=== PATIENT | female | born 1960 | race Caucasian/White ===

== ENCOUNTER 2017-09-18 19:32 | Emergency (ER) | payer BC ==
--- NOTE | 2017-09-18 21:00 | PDOC ---
History of Present Illness - General History Source: Patient, Family (daughter ) Exam Limitations: No Limitations - History of Present Illness Initial Comments: 09/18/17 21:11 The patient is a 57 year old female with no significant past medical history who presents to the ED s/p alcohol intoxication since earlier today. Patient states she did not eat anything since Saturday and consumed large amounts of vodka earlier today. Daughter states the patient was not acting at her mental baseline and was . Patient states she is drinking because she feels depressed. Denies fever or chills. Denies loss of consciousness. Denies any other symptoms. Social hx: The patient is a social drinker. <Mariel Mireles - Last Filed: 09/18/17 21:11> <Nadine Beltran - Last Filed: 09/18/17 21:46> - General Stated Complaint: Alcohol intoxication Past History <Mariel Mireles - Last Filed: 09/18/17 21:11> - Past Medical History Anemia: No Asthma: No Cancer: No Cardiac Disorders: No CVA: No COPD: No CHF: No Dementia: No Diabetes: No GI Disorders: No Disorders: No HTN: Yes Hypercholesterolemia: Yes Liver Disease: No Seizures: No Thyroid Disease: No - Surgical History Abdominal Surgery: No Appendectomy: No Cardiac Surgery: No Cholecystectomy: No Lung Surgery: No Neurologic Surgery: No Orthopedic Surgery: No - Suicide/Smoking/Psychosocial Hx Smoking History: Current every day smoker ("hookah") Hx Alcohol Use: Yes Drug/Substance Use Hx: Yes Substance Use Type: Alcohol Hx Substance Use Treatment: No <Nadine Beltran - Last Filed: 09/18/17 21:46> - Past Medical History Allergies/Adverse Reactions: Allergies Allergy/AdvReac Type Severity Reaction Status Date / Time No Allergy Information Allergy Verified 04/16/16 11:01 Available Home Medications: Ambulatory Orders Thiamine HCl [Vitamin B1 -] 100 mg PO DAILY tablet 04/20/16 Review of Systems - Review of Systems Able to Perform ROS?: Yes Comments:: 09/18/17 21:11 GENERAL/CONSTITUTIONAL: + alcohol intoxication. No fever or chills. No weakness. HEAD, EYES, EARS, NOSE AND THROAT: No change in vision. No ear pain or discharge. No sore throat. CARDIOVASCULAR: No chest pain or shortness of breath. RESPIRATORY: No cough, wheezing, or hemoptysis. GASTROINTESTINAL: No nausea, vomiting, diarrhea or constipation. GENITOURINARY: No dysuria, frequency, or change in urination. MUSCULOSKELETAL: No joint or muscle swelling or pain. No neck or back pain. SKIN: No rash NEUROLOGIC: + altered mental status. No headache, vertigo, loss of consciousness , or change in strength. ENDOCRINE: No increased thirst. No abnormal weight change. HEMATOLOGIC/LYMPHATIC: No anemia, easy bleeding, or history of blood clots. ALLERGIC/IMMUNOLOGIC: No hives or skin allergy. All Other Systems: Reviewed and Negative <Mariel Mireles - Last Filed: 09/18/17 21:11> *Physical Exam - Physical Exam Comments: 09/18/17 21:11 GENERAL: Awake, alert, in no acute distress HEAD: No signs of trauma EYES: + eyes injected. PERRLA, EOMI, conjunctiva clear ENT: Auricles normal inspection, hearing grossly normal, nares patent, oropharynx clear without exudates. Moist mucosa NECK: Normal ROM, supple, no lymphadenopathy, JVD, or masses LUNGS: Breath sounds equal, clear to auscultation bilaterally. No wheezes, and no crackles HEART: Regular rate and rhythm, normal S1 and S2, no murmurs, rubs or gallops ABDOMEN: Soft, nontender, normoactive bowel sounds. No guarding, no rebound. No masses EXTREMITIES: Normal range of motion, no edema. No clubbing or cyanosis. No cords, erythema, or tenderness NEUROLOGICAL: + slurred speech, A&O x 3, moving all extremities. SKIN: Warm, Dry, normal turgor, no rashes or lesions noted. <Mariel Mireles - Last Filed: 09/18/17 21:11> Medical Decision Making - Medical Decision Making 09/18/17 20:58 57-year-old female here today brought with her daughter for concerns for altered mental status per the daughter presumes the patient had been drinking alcohol however the patient has been denying it denies any recent trauma falls or other injuries. States the patient does not drink daily because she was acting so altered they brought her here for evaluation On examination patient is awake somewhat irritable lungs are clear heart is regular without murmurs rubs or gallops abdomen is soft and nontender extremities are warm well atraumatic. Neurologically she is alert and oriented moving all extremities . Differential includes alcohol intoxication other drug use the plan will check labs EtOH level and tox screen and reassess her sobriety 09/18/17 21:42 Patient admits to drinking vodka today is here with her daughter. Discussion with the daughter has no concerns for other ingestions. States patient does get like this periodically. No history of prior suicide attempts did have an argument with another sibling which prompted her to drink today daughter states she is comfortable bringing her home and would like to decline lab work and take the patient home patient iis requesting to go with family. <Nadine Beltran - Last Filed: 09/18/17 21:46> *DC/Admit/Observation/Transfer - Attestations Scribe Attestion: 09/18/17 21:11 Documentation prepared by Mariel Mireles, acting as medical or surgical instrument maker for Nadine Beltran MD <Mariel Mireles - Last Filed: 09/18/17 21:11> - Discharge Dispostion Admit: No <Nadine Beltran - Last Filed: 09/18/17 21:46> Diagnosis at time of Disposition: Alcohol intoxication - Discharge Dispostion Disposition: HOME Condition at time of disposition: Good - Patient Instructions Printed Discharge Instructions: Alcohol and Stress: There are Safer Ways to [place] Additional Instructions: avoid from heavy alcohol intake. return for any concerns.
[2017-09-18] MEDS ORDERED: SODIUM CHLORIDE 0.9% 1000 ML INFUS.BAG IV ONE (21:10)
== END 2017-09-19 02:00 | disposition home or self-care (01) ==
LOC: JER 19:32
DX: F10.120 Alcohol abuse with intoxication, uncomplicated (principal); R41.82 Altered mental status, unspecified
CPT/HCPCS: 99281-25

== ENCOUNTER 2020-11-24 13:25 | Emergency (ER) | payer OTHER | END 2020-11-24 15:20 | disposition home or self-care (01) | LOC: JVIRT 13:25 | DX: J02.9 Acute pharyngitis, unspecified (principal); R51.9 Headache, unspecified; R50.9 Fever, unspecified | CPT/HCPCS: G2251-GT; Q3014-GT ==